=== PATIENT | male | born 1955 | race Caucasian/White ===

== ENCOUNTER 2022-02-26 22:32 | Emergency (ER) | payer MEDICARE, OTHER ==
[~2022-02-26] VITALS: Ht 180.3 cm; Wt 71.0 kg
== END 2022-02-27 04:35 | disposition home or self-care (01) ==
LOC: ER1 22:32
DX: U07.1 COVID-19 (principal); Z23 Encounter for immunization; J40 Bronchitis, not specified as acute or chronic; E78.5 Hyperlipidemia, unspecified; E11.9 Type 2 diabetes mellitus without complications; K21.9 Gastro-esophageal reflux disease without esophagitis; I10 Essential (primary) hypertension; Z79.899 Other long term (current) drug therapy
CPT/HCPCS: 0240U; 71045; 87081; 87880; 99283; M0222